=== PATIENT | female | born 1995 | race Caucasian/White ===

== ENCOUNTER 2017-11-28 07:23 | Day surgery (SDC) | payer OTHER, SELFPAY ==
[2017-11-28 07:50] LABS: Internal QC Validated? YES +Cl - CLEAR BKGD; Pregnancy, Urine Negative Negative
[2017-11-28 07:53] VITALS: BP 104/61; PULSE 48; RESP 14; TEMP 36.3; O2SAT 98; BMI 28.8
[2017-11-28] MEDS: Ciprofloxacin 0.3% 2.5ml Bottle 1 DRP (08:21)
--- NOTE | 2017-11-28 08:45 | PCM.DC.EAR ---
Discharge Diet: No Restrictions Discharge Activity: Return to Normal Activity Additional Activity Instructions:: Keep ears dry. Allergies/Adverse Reactions: Allergies No Known Allergies Allergy (Verified 11/21/17 09:54) Medications to take at Discharge NK [NK] 11/21/17 Primary Care Physician: Care Physician,No Primary [Primary Care Provider] - Please Follow Up With: Kingsley Munson MD - [phone] When: 1-2 weeks.
[2017-11-28 08:50] VITALS: BP 104/61; BP 105/62; PULSE 56; RESP 16; TEMP 36.7; O2SAT 98
[2017-11-28 09:00] VITALS: BP 104/61; BP 95/59; PULSE 68; RESP 16; O2SAT 100
[2017-11-28 09:03] VITALS: BP 104/61
[2017-11-28 09:12] VITALS: BP 104/60; BP 104/61; PULSE 58; RESP 16; TEMP 36.9; O2SAT 99
--- NOTE | 2017-11-28 09:17 | PCM.OP.BLANK ---
Operative Report Date of Procedure: 11/28/17 Preoperative diagnosis: Right serous otitis media Postoperative diagnosis: Same Procedure: Right myringotomy with tympanostomy tube placement Anesthesia: General per Mayda Mcdaniel CRNA Details of procedure: The patient was transported to the operating room and placed on the OR table in the supine position. After the administration of adequate general mask anesthesia the patient was appropriately positioned and the right ear was examined with the microscope. Examination revealed serous effusion. Myringotomy was created in the anterior inferior aspect and serous fluid was evacuated. Ciprofloxacin drops were rinsed through the middle ear and suctioned clear after which a parasol tube was placed uneventfully. The procedure was then terminated. The patient tolerated the procedure well, did not sustain any intraoperative anesthetic or surgical complication, was taken to the PACU where she was noted to be in satisfactory condition. Kingsley Munson MD
[2017-11-28 09:26] VITALS: BP 104/61
== END 2017-11-28 09:35 | disposition home or self-care (01) ==
LOC: SDC 07:25 → AC 07:26
PROVIDERS: Visit Provider Otolaryngology Otolaryngology/Facial Plastic Surgery
DX: H65.21 Chronic serous otitis media, right ear (principal)
CPT/HCPCS: 69436; 81025; J7120; J2405

== ENCOUNTER → 2020-05-25 10:19 | Outpatient (CLI) | payer OTHER, SELFPAY | PROVIDERS: Referring Provider Otolaryngology; Visit Provider Otolaryngology | DX: Z11.59 Encounter for screening for other viral diseases (principal) | CPT/HCPCS: 87635; C9803; U0003 ==